=== PATIENT | male | born 1995 ===

== ENCOUNTER 2017-10-26 19:51 | Emergency (ER) | payer BC ==
[2017-10-26 19:51] VITALS: BMI 20.4
[2017-10-26] MEDS ORDERED: Sodium Chloride 0.9% 1,000 ML IV STA (21:45)
--- NOTE | 2017-10-26 22:23 | ED PDOC ---
HPI: General Adult Time Seen by Provider: 10/26/17 21:09 Chief Complaint (Nursing): Back Pain Chief Complaint (Provider): back pain History Per: Patient History/Exam Limitations: clinical condition Onset/Duration Of Symptoms: Days (x1) Current Symptoms Are (Timing): Still Present Additional Complaint(s): 21 year old male who presents to the emergency department with a complaint of fever associated with chills, back pain, headache, nausea and mild urinary discomfort ongoing for 1 day. Denied any abdominal pain, diarrhea, shortness of breath, chest pain or cough. Patient reported taking Tylenol with some relief of symptoms. PMD: Yan Lundberg MD Past Medical History Reviewed: Historical Data Vital Signs: Last Vital Signs Temp 98 F 10/26/17 23:23 Pulse 111 H 10/26/17 23:23 Resp 20 10/26/17 23:23 BP 111/60 10/26/17 23:23 Pulse Ox 100 10/26/17 23:45 - Medical History PMH: No Chronic Diseases - Family History Family History: States: Unknown Family Hx - Immunization History Hx Tetanus Toxoid Vaccination: No Hx Influenza Vaccination: No Hx Pneumococcal Vaccination: No - Home Medications Home Medications: Ambulatory Orders Medication Instructions Recorded Amoxicillin 500 mg PO Q12 #13 tablet 01/13/16 Neomycin/Polymyxin/Hydrocortis 4 drop OT TID #1 bottle 01/13/16 [Cortisporin Otic Susp] Oseltamivir [Tamiflu] 75 mg PO BID #10 cap 10/26/17 - Allergies Allergies/Adverse Reactions: Allergies Allergy/AdvReac Type Severity Reaction Status Date / Time No Known Allergies Allergy Verified 10/26/17 19:53 Review of Systems ROS Statement: Except As Marked, All Systems Reviewed And Found Negative Constitutional: Positive for: Fever, Chills Cardiovascular: Negative for: Chest Pain Respiratory: Negative for: Cough, Shortness of Breath Gastrointestinal: Positive for: Nausea. Negative for: Abdominal Pain, Diarrhea Genitourinary Male: Positive for: Dysuria (mild) Musculoskeletal: Positive for: Back Pain Neurological: Positive for: Headache Physical Exam - Reviewed Nursing Documentation Reviewed: Yes Vital Signs Reviewed: Yes - Physical Exam Appears: Positive for: Non-toxic, No Acute Distress ENT: Positive for: Other (dry mucous membranes). Negative for: Normal ENT Inspection, Pharyngeal Erythema Neck: Positive for: Normal, Painless ROM, Supple. Negative for: Decreased ROM Cardiovascular/Chest: Positive for: Chest Non Tender, Tachycardia. Negative for : Regular Rate, Rhythm Respiratory: Positive for: Normal Breath Sounds. Negative for: Decreased Breath Sounds, Respiratory Distress Gastrointestinal/Abdominal: Positive for: Normal Exam, Soft. Negative for: Tenderness Back: Positive for: Normal Inspection. Negative for: L CVA Tenderness, R CVA Tenderness, Vertebral Tenderness Neurologic/Psych: Positive for: Alert (x3), Oriented, Mood/Affect (febrile) - Laboratory Results Result Diagrams: 10/26/17 22:18 10/26/17 22:18 - ECG O2 Sat by Pulse Oximetry: 100 (RA) Pulse Ox Interpretation: Normal Medical Decision Making Medical Decision Making: Initial Impression: 21 yo male with flu like symptoms Initial Plan: * CMP * Lact acid * Urine dipstick * CBC * Chlamydia/GC RNA * NS 1,000ml IV per 1,000mls/hr * Toradol 30mg IV * Blood culture * Urine culture * [place] * Influenza A B * Urinalysis 2344 Labs reviewed: no clinically significant abnormalities with the exception of being flu positive. Patient reports improvement in symptoms. Initial dose of Tamiflu ordered, but patient declined and opts for lauren-based healing. Patient is stable for discharge home. Dx: influenza. Scribe Attestation: Documented by Tyesha Strauss and Taylor Solis, acting as a scribe for Alex Whittaker MD. Provider Scribe Attestation: All medical record entries made by the Scribe were at my direction and personally dictated by me. I have reviewed the chart and agree that the record accurately reflects my personal performance of the history, physical exam, medical decision making, and the department course for this patient. I have also personally directed, reviewed, and agree with the discharge instructions and disposition. Disposition - Clinical Impression Clinical Impression: Influenza A - Disposition Disposition: Routine/Home Disposition Time: 23:44 Condition: STABLE Prescriptions: Oseltamivir [Tamiflu] 75 mg PO BID #10 cap Instructions: Influenza (ED) Forms: [employer] (French)
[2017-10-26 22:27] LABS: BASO % 0.2 % (0.0-2.0); EOS % 0.1 % (0.0-4.0); HEMOGLOBIN 15.7 g/dL (12.0-18.0); LYMPH # 0.4 K/uL (1.0-4.3); MEAN CELL VOLUME 91.3 fl (80.0-94.0); MEAN CORPUSCULAR HEMOGLOBIN 30.8 pg (27.0-31.0); MEAN CORPUSCULAR HGB CONC 33.7 g/dL (33.0-37.0); MEAN PLATELET VOLUME 8.2 fl (7.2-11.7); MONO # 0.6 K/uL (0.0-0.8); MONO % 10.1 % (0.0-10.0); NEUT # 4.8 K/uL (1.8-7.0); NEUT % 83.6 % (50.0-75.0); NRBC % 0.2 % (0.0-0.0); PLATELET COUNT 137 K/uL (130-400); RED CELL DISTRIBUTION WIDTH 12.2 % (11.5-14.5); WHITE BLOOD COUNT 5.8 K/uL (4.8-10.8)
[2017-10-26 22:45] LABS: ALB/GLOB RATIO 1.6 (1.0-2.1); ALBUMIN 4.6 g/dL (3.5-5.0); ALT/SGPT 47 U/L (21-72); AST/SGOT 26 U/L (17-59); BLOOD UREA NITROGEN 15 mg/dl (9-20); CALCIUM 9.3 mg/dL (8.4-10.2); GFR AFRICAN-AMERICAN > 60; GFR NON-AFRICAN AMERICAN > 60; URINE BILIRUBIN NEGATIVE (NEGATIVE); URINE BLOOD NEGATIVE (NEGATIVE); URINE CLARITY SLIGHTY-CLOUDY (Clear); URINE GLUCOSE (UA) NEG (Normal); URINE LEUKOCYTE ESTERASE NEG Leu/uL (Negative); URINE NITRATE NEGATIVE (NEGATIVE); URINE PROTEIN 30 mg/dL (NEGATIVE)
[2017-10-26 22:58] VITALS: RESP 20
[2017-10-26] MEDS ORDERED: Sodium Chloride 23.4% 20 MEQ in Dextrose 10% In Water 500 ML IV SCH (23:00)
[2017-10-26 23:05] LABS: BANDS 2 % (0-2); LYMPHOCYTE 8 % (20-50); MONOCYTE 8 % (0-10); NEUTROPHIL 82 % (42-75); PLATELET ESTIMATE NORMAL (NORMAL); TOTAL CELLS COUNTED 100
[2017-10-26 23:17] LABS: URINE COLOR YELLOW (YELLOW)
[2017-10-26 23:24] VITALS: BP 111/60; PULSE 111; TEMP 98
[2017-10-26 23:45] VITALS: O2SAT 100
== END 2017-10-27 00:22 | disposition home or self-care (01) ==
LOC: H.ER 19:51
DX: J11.1 Influenza due to unidentified influenza virus with other respiratory manifestations (principal)
CPT/HCPCS: 80053; 81003; 83605; 85025; 86308; 87040; 87086; 87491; 87591; 87804; 96374; 99282; J1885; J7040

== ENCOUNTER 2018-07-05 01:36 | Emergency (ER) | payer BC ==
[2018-07-05 01:37] VITALS: BMI 20.4
[2018-07-05 01:49] VITALS: RESP 20; TEMP 98.7; O2SAT 99
[2018-07-05] MEDS ORDERED: Sodium Chloride 0.9% 1,000 ML IV STA (02:09)
[2018-07-05 02:28] LABS: BASO # 0.1 K/uL (0.0-0.2); EOS # 0.7 K/uL (0.0-0.7); EOS % 12.9 % (0.0-4.0); HEMOGLOBIN 16.5 g/dL (12.0-18.0); LYMPH # 2.2 K/uL (1.0-4.3); LYMPH % 40.9 % (20.0-40.0); MEAN CELL VOLUME 91.7 fl (80.0-94.0); MEAN CORPUSCULAR HEMOGLOBIN 32.5 pg (27.0-31.0); MEAN CORPUSCULAR HGB CONC 35.4 g/dL (33.0-37.0); MEAN PLATELET VOLUME 7.8 fl (7.2-11.7); MONO # 0.6 K/uL (0.0-0.8); MONO % 10.6 % (0.0-10.0); NEUT # 1.9 K/uL (1.8-7.0); NEUT % 34.6 % (50.0-75.0); NRBC % 0.1 % (0.0-0.0); RBC 5.1 Mil/uL (4.40-5.90); RED CELL DISTRIBUTION WIDTH 12.6 % (11.5-14.5); WHITE BLOOD COUNT 5.4 K/uL (4.8-10.8)
[2018-07-05 02:52] LABS: ALB/GLOB RATIO 1.5 (1.0-2.1); ALBUMIN 4.3 g/dL (3.5-5.0); ALT/SGPT 272 U/L (21-72); AST/SGOT 107 U/L (17-59); BLOOD UREA NITROGEN 14 mg/dl (9-20); CALCIUM 9.3 mg/dL (8.4-10.2); GFR NON-AFRICAN AMERICAN > 60; LIPASE 59 U/L (23-300)
[2018-07-05 03:15] LABS: URINE BILIRUBIN NEGATIVE (NEGATIVE); URINE BLOOD NEGATIVE (NEGATIVE); URINE CLARITY CLOUDY (Clear); URINE COLOR BLUE (YELLOW); URINE GLUCOSE (UA) NEG (Normal); URINE LEUKOCYTE ESTERASE NEG Leu/uL (Negative); URINE PROTEIN NEGATIVE (NEGATIVE); URINE UROBILINOGEN 0.2-1.0 mg/dL (0.2-1.0)
--- NOTE | 2018-07-05 03:29 | ED PDOC ---
HPI: Abdomen Time Seen by Provider: 07/05/18 01:54 Chief Complaint (Nursing): Abdominal Pain Chief Complaint (Provider): Abdominal Pain History Per: Patient History/Exam Limitations: no limitations Onset/Duration Of Symptoms: Days (x4) Outside of [place] travel?: Yes Other Location:: [place] Current Symptoms Are (Timing): Still Present Associated Symptoms: Nausea, Vomiting, Diarrhea. denies: Fever Additional Complaint(s): Alexander Jones is a 22 year old male with no past medical history who is presenting to the ED for evaluation of abdominal pain associated with nausea, vomiting, and diarrhea onset about 4 days ago. Patient states that four days ago he was seen in this ED for abdominal pain and fatigue. He states that he was discharged and advised to follow up with PMD. At the time, his labs were unremarkable with the exception of slight elevation in liver function tests. Patients admits that he experienced a 5 pound weight loss but denies any fevers. Of note, patient admits that he was in [place] for 1 month and returned on July 02. PMD: Yan Lundberg Past Medical History Reviewed: Historical Data, Nursing Documentation, Vital Signs Vital Signs: Last Vital Signs Temp 98.7 F 07/05/18 01:48 Pulse 74 07/05/18 01:48 Resp 20 07/05/18 01:48 BP 115/71 07/05/18 01:48 Pulse Ox 99 07/05/18 03:31 - Surgical History Surgical History: No Surg Hx - Family History Family History: States: Unknown Family Hx - Social History Current smoker - smoking cessation education provided: No Alcohol: None Drugs: Denies - Immunization History Hx Tetanus Toxoid Vaccination: No Hx Influenza Vaccination: No Hx Pneumococcal Vaccination: No - Home Medications Home Medications: Ambulatory Orders Medication Instructions Recorded Amoxicillin 500 mg PO Q12 #13 tablet 01/13/16 Neomycin/Polymyxin/Hydrocortis 4 drop OT TID #1 bottle 01/13/16 [Cortisporin Otic Susp] Oseltamivir [Tamiflu] 75 mg PO BID #10 cap 10/26/17 Amoxicillin/Clavulanate [Augmentin 1 tab PO BID #20 tab 07/02/18 500 MG-125 MG] Amoxicillin/Clavulanate [Augmentin 1 tab PO BID 10 Days #20 tab 07/02/18 500 MG-125 MG] Fluticasone Propionate [Flonase] 2 spr NS DAILY PRN #1 bottle 07/02/18 Fluticasone Propionate [Flonase] 2 spr NS DAILY PRN #1 bottle 07/02/18 Pseudoephedrine HCl [Sudafed] 1 - 2 tab PO Q8 PRN #15 tablet 07/02/18 Pseudoephedrine HCl [Sudafed] 1 - 2 tab PO Q8 PRN #15 tablet 07/02/18 - Allergies Allergies/Adverse Reactions: Allergies Allergy/AdvReac Type Severity Reaction Status Date / Time No Known Allergies Allergy Verified 07/05/18 01:49 Review of Systems ROS Statement: Except As Marked, All Systems Reviewed And Found Negative Constitutional: Negative for: Fever Gastrointestinal: Positive for: Nausea, Vomiting, Abdominal Pain, Diarrhea Physical Exam - Reviewed Nursing Documentation Reviewed: Yes Vital Signs Reviewed: Yes - Physical Exam Appears: Positive for: Non-toxic, No Acute Distress Head Exam: Positive for: ATRAUMATIC, NORMAL INSPECTION, NORMOCEPHALIC Skin: Positive for: Normal Color, Warm, DRY Eye Exam: Positive for: EOMI, Normal appearance, PERRL ENT: Positive for: Normal ENT Inspection Neck: Positive for: Normal, Painless ROM Cardiovascular/Chest: Positive for: Regular Rate, Rhythm. Negative for: Murmur Respiratory: Positive for: Normal Breath Sounds. Negative for: Respiratory Distress Gastrointestinal/Abdominal: Positive for: Normal Exam, Soft. Negative for: Tenderness Back: Positive for: Normal Inspection. Negative for: L CVA Tenderness, R CVA Tenderness, Vertebral Tenderness Extremity: Positive for: Normal ROM. Negative for: Deformity, Swelling Neurologic/Psych: Positive for: Alert, Oriented. Negative for: Motor/Sensory Deficits - Laboratory Results Result Diagrams: 07/05/18 02:15 07/05/18 02:15 - ECG O2 Sat by Pulse Oximetry: 99 (RA) Pulse Ox Interpretation: Normal Medical Decision Making Medical Decision Making: Time: 2:27 Impression: 22 year old male with nonspecific abdominal pain in setting of recent travel and abnormal liver function test Plan: --CMP --Drug Screen --Lipase --ED Urine Dipstick --CBC --IV Fluids --Ova and Parasite --Stool Culture --Fecal Leukocytes --Infectious Mononucleosis --Urinalysis Patient in conjunction with mother refused CT, citing concerns regarding radiation. 4:23 Labs were reviewed with mild elevation in liver function, essentially unchanged from previous exam. Patient counselled as to possible mononucleosis given symptoms and elevated LFTs. Patient scheduled a follow up with GI specialist in 3 days. Provider reinforced the importance of follow ups with both GI specialist and PMD. Upon provider evaluation patient is medically stable, and requires no further treatment in the ED at this time. Patient will be discharged home. Counseling was provided and all questions were answered regarding diagnosis and need for follow up with GI specialist and PMD. There is agreement to discharge plan. Return if symptoms persist or worsen. Scribe Attestation: Documented by Suzanne Johnson, acting as a scribe for Alex Whittaker MD. Provider Scribe Attestation: All medical record entries made by the Scribe were at my direction and personally dictated by me. I have reviewed the chart and agree that the record accurately reflects my personal performance of the history, physical exam, medical decision making, and the department course for this patient. I have also personally directed, reviewed, and agree with the discharge instructions and disposition. Disposition - Clinical Impression Clinical Impression: Elevated liver enzymes - Disposition Referrals: Yan Lundberg MD [Primary Care Provider] - Disposition: Routine/Home Disposition Time: 04:27 Condition: STABLE Instructions: Mononucleosis Forms: [id number] ([place]an)
[2018-07-05 04:05] LABS: BARBITURATES, UR NEGATIVE (NEGATIVE); BENZODIAZEPINES, UR NEGATIVE (NEGATIVE); OPIATES, UR NEGATIVE (NEGATIVE); PHENCYCLIDINE, UR NEGATIVE (NEGATIVE)
[2018-07-05 04:27] VITALS: BP 117/73; PULSE 80
== END 2018-07-05 04:30 | disposition home or self-care (01) ==
LOC: H.ER 01:36
DX: R94.5 Abnormal results of liver function studies (principal)
CPT/HCPCS: 80053; 81003; 83690; 85025; 86308; 87045; 87177; 87209; 89055; 96360; 99283; G0480; J7030